=== PATIENT | female | born 1955 | race Caucasian/White ===

== ENCOUNTER 2017-05-03 19:11 | Emergency (ER) | payer BC ==
[2017-05-03] MEDS ORDERED: Ketorolac Tromethamine 30 MG/ML VIAL ONE (19:35)
[2017-05-03 20:03] LABS: Band 1 % (5-11); Eosinophils 6 % (0-10); Hemoglobin 14.5 g/dL (12.0-16.0); Lymphocytes 39 % (21-51); MDiff Complete? YES; Mean Corpuscular HGB CONC 33.2 g/dL (32.0-36.0); Mean Corpuscular Hemoglobin 28.8 pg (27.0-31.0); Mean Corpuscular Volume 86.7 fl (81.0-99.0); Mean Platelet Volume 8.2 fL (7.4-10.4); Monocytes 5 % (0-10); Neutrophil 37 % (42-75); PLT Morphology Comment Appears Adequate; Platelet Count 349 thou/uL (130-400); RBC Distribution Width 12.9 % (11.5-14.5); Reactive Lymphocytes 12 % (0-10); Red Blood Cell (RBC) Count 5.04 mill/uL (4.20-5.40); White Blood Cell (WBC) Count 11.6 thou/uL (4.8-10.8)
[2017-05-03 20:15] LABS: ALT (SGPT) 41 U/L (8-55); AST (SGOT) 33 U/L (5-34); Albumin 4.1 g/dL (3.5-5.0); Alkaline Phosphatase 101 U/L (40-150); Anion Gap 14 mmol/L (10-20); BUN (Urea Nitrogen) 17 mg/dL (9.8-20.1); Bilirubin, Total 0.2 mg/dL (0.2-1.2); CK (CPK) 86 U/L (29-168); Calc. Creatinine Clearance 0 mL/min (70-130); Calcium 9.7 mg/dL (7.8-10.44); Carbon Dioxide 24 mmol/L (22-29); Chloride 106 mmol/L (98-107); Estimated GFR-MDRD 48; Globulin 3.5 g/dL (2.4-3.5); Glucose 97 mg/dL (70-105); Lipase 60 U/L (8-78); Protein, Total 7.6 g/dL (6.0-8.3); Sodium 140 mmol/L (136-145)
[2017-05-03 20:16] LABS: CKMB 0.9 ng/mL (0-6.6)
--- NOTE | 2017-05-03 20:31 | RAD ---
PORTABLE CHEST: 05/03/17 HISTORY: Chest pain. COMPARISON: 12/29/13. Heart size is upper normal. Mild vascular engorgement, stable from prior exam. No focal infiltrate or effusion. No significant interval change noted. IMPRESSION: No evidence of acute process. POS: [facility]
== END 2017-05-03 20:27 | disposition home or self-care (01) ==
LOC: SCSER 19:11
DX: R07.89 Other chest pain (principal); I10 Essential (primary) hypertension; I48.91 Unspecified atrial fibrillation; F41.9 Anxiety disorder, unspecified; F32.9 Major depressive disorder, single episode, unspecified; Z79.82 Long term (current) use of aspirin; Z79.899 Other long term (current) drug therapy
CPT/HCPCS: 71045; 80053; 82553; 83690; 84484; 85025; 85379; 93005; 96374; J1885

== ENCOUNTER 2017-12-08 19:40 | Observation (INO) | payer BC ==
[2017-12-08 20:18] LABS: #Basophils 0.1 thou/uL (0.0-0.2); #Eosinphils 0.3 thou/uL (0.0-0.7); #Lymphocytes 5.1 thou/uL (1.20-3.40); %Eosinophils 2.8 % (0.0-10.0); %Lymphocytes 43.9 % (21.0-51.0); %Monocytes 8.8 % (0.0-10.0); %Neutrophils 43.4 % (42.0-75.0); Hemoglobin 14.7 g/dL (12.0-16.0); Mean Corpuscular HGB CONC 33.3 g/dL (32.0-36.0); Mean Corpuscular Hemoglobin 30.4 pg (27.0-31.0); Mean Corpuscular Volume 91.2 fL (78.0-98.0); Platelet Count 329 thou/uL (130-400); RBC Distribution Width 12.5 % (11.5-14.5); Red Blood Cell (RBC) Count 4.82 mill/uL (4.20-5.40); White Blood Cell (WBC) Count 11.5 thou/uL (4.8-10.8)
[2017-12-08] MEDS ORDERED: Diltiazem HCl 125 MG, Admixture Fee 1 EACH in Sodium Chloride 0.9% 100 ML IVPB SCH (20:30)
[2017-12-08 20:37] LABS: ALT (SGPT) 25 U/L (8-55); AST (SGOT) 29 U/L (5-34); Albumin 4.1 g/dL (3.5-5.0); Alkaline Phosphatase 100 U/L (40-150); Anion Gap 13 mmol/L (10-20); BUN (Urea Nitrogen) 13 mg/dL (9.8-20.1); Bilirubin, Total 0.4 mg/dL (0.2-1.2); CK (CPK) 96 U/L (29-168); Calc. Creatinine Clearance 0 mL/min (70-130); Calcium 9.3 mg/dL (7.8-10.44); Carbon Dioxide 24 mmol/L (22-29); Chloride 106 mmol/L (98-107); Estimated GFR-MDRD 59; Globulin 3.8 g/dL (2.4-3.5); Glucose 161 mg/dL (70-105); Potassium 3.9 mmol/L (3.5-5.1); Protein, Total 7.9 g/dL (6.0-8.3); Sodium 139 mmol/L (136-145)
[2017-12-08 20:49] LABS: Troponin I Less than 0.010 ng/mL (< 0.028)
[2017-12-08] MEDS ORDERED: Magnesium 2 GM/50 ML BAG (IN WATER) ONE (21:32)
--- NOTE | 2017-12-08 21:53 | RAD ---
CHEST ONE VIEW: 12/08/17 INDICATION: Atrial fibrillation. COMPARISON: Prior exam dated May 03, 2017. FINDINGS: There is mild cardiomegaly. Loop recorder overlying the left chest wall is stable. Lungs are clear. N o pleural effusion is evident. No acute osseous abnormality is noted. IMPRESSION: Stable mild cardiomegaly. No acute cardiopulmonary abnormality demonstrated. POS: [facility]
[2017-12-08 23:51] LABS: Troponin I Less than 0.010 ng/mL (< 0.028)
[2017-12-09] MEDS ORDERED: Ondansetron PF 4 MG/2 ML Vial IVP PRN (02:23)
[2017-12-09] MEDS ORDERED: Ondansetron ODT 4 MG TAB SL PRN (02:23)
[2017-12-09 02:58] LABS: Troponin I Less than 0.010 ng/mL (< 0.028)
[2017-12-09 03:33] VITALS: BMI 34.9
[2017-12-09] MEDS ORDERED: Diltiazem HCl SR 60 mg Capsule PO SCH (09:00)
[2017-12-09] MEDS ORDERED: Carvedilol 6.25 MG TAB PO SCH (09:00)
[2017-12-09] MEDS ORDERED: Aspirin 81 mg Enteric Coated Tablet PO SCH (09:00)
--- NOTE | 2017-12-09 12:52 | HP ---
DATE OF ADMISSION: 12/08/2017 CHIEF COMPLAINT: Tachycardia. HISTORY OF PRESENT ILLNESS: This is a 62-year-old female patient of Dr. Graham Marcos's wit h well known history of atrial fibrillation. She noticed yesterday that her heart was back in atrial fibrillation beating very rapidly and no chest pain, but she does knew she felt bad, so she called f or an ambulance from where she was. EMT has found her rate to be in 180s at medicines they started by the time she was in the ER rates in the 150s to 160s. They could not get it to come down, so they had to put her on a Cardizem drip. S he had been ablated by Dr. Rankin 4 different times and the last time they did a dual chamber ablatio n. She had recently discontinued her amiodarone to see how well she would tolerate that. Her regula r toggle press operator is Dr. Nixon. PAST MEDICAL HISTORY: Positive for atrial fibrillation with RVR. 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 She had a history of Mckeon anginal vaginal deliveries x4. CURRENT MEDICATIONS: Carvedilol 6.25 twice a day and an aspirin. ALLERGIES: She has no known drug allergies. FAMILY HISTORY: Heart disease in both mother and father and diabetes was also in the family in multi ple people. SOCIAL HISTORY: She is , has 4 children, all girls. Denies any toxic habits. REVIEW OF SYSTEMS: Denies any visual changes, headaches, fevers or chills. No troubles chewing or s wallowing. No cough, no shortness of breath, no chest pain. Denies any nausea or vomiting. No boyle ges in bowel or bladder habits. No diarrhea, constipation, melena or hematochezia. Denies any dysur ia or hematuria. Denies any paresis or paresthesias. Denies any psychiatric symptoms. No homicidal or suicidal ideations. No auditory or visual hallucinations. PHYSICAL EXAMINATION: VITAL SIGNS: Temperature 98.2, pulse 63, respiratory 16, satting 95% on room air, blood pressure 133 /72 and that is after being on a Cardizem drip for several hours. HEENT: Normocephalic and atraumatic cranium. Pupils are equal, round, and reactive to light and acc ommodation. Extraocular movements are intact. Moist mucosal membranes are moist. She has a vascula r birthmark on the face over her left periorbital skin and infraorbital area. NECK: Supple, no JVD, no bruits, no thyromegaly. LUNGS: Lungs are clear to auscultation bilaterally, no rales, rhonchi or wheezes. HEART: S1, S2, no rubs, murmurs or gallops. I am not detecting an irregular rhythm at this time. ABDOMEN: Soft, nontender, nondistended, no palpable masses, no hepatosplenomegaly. GENITOURINARY: Deferred. EXTREMITIES: Palpable pulses x4. No clubbing, cyanosis, or edema. NEUROLOGIC: Grossly intact, alert and oriented x4. Cranial nerves II-XII are grossly intact bilater ally. LABORATORY AND X-RAY FINDINGS: CBC; white count 11.5, H and H is 14.7 and 44, platelet count is 329. Sodium 139, potassium 3.9, chloride 106, bicarbonate 24, BUN is 13, creatinine 0.96 filtration rate is slightly low at 59, glucose at that time was 161, AST is 29, ALT is 25, CK-MB 1.0, troponin has b een undetectable x3. ASSESSMENT: Atrial fibrillation with rapid ventricular response, controlled with Cardizem drip. PLAN: We will transition her from Cardizem drip to p.o. Cardizem. Cardiology has been consulted. I hope and if she tolerates that, she will be able to go home in short order.
--- NOTE | 2017-12-09 14:57 | CON ---
DATE OF CONSULTATION: 12/09/2017 ROOM #: [id number]. PRIMARY CARE DOCTOR: Graham Marcos M.D. PRIMARY PERFORMANCE REPORTER: Tyler Nixon M.D. REFERRING PHYSICIAN: Riley Portillo D.O. REASON FOR CARDIOLOGY CONSULTATION: Atrial fibrillation with a rapid ventricular response. HISTORY OF PRESENT ILLNESS: Ms. Alonzo is very pleasant 62 years old female with a significan t history of chronic atrial fibrillation with 4-5 times ablation in the past and a Watchman device pl acement in 2014. The last time the patient has seen Dr. Nixon and Dr. Rankin, the electrophysiol ogist; she was seen by Dr. Rankin in [place] about 4 weeks ago. At that time, she was complaining abo ut skipping beats and fast heart rate, possibly due to the Multaq. Dr. Rankin recommend her to hold the Multaq for 2 weeks, to follow up with Dr. Rankin and possible ablation. She was doing well until yesterday 07:00 in the evening. When she was walking to the shopping Center, she started having pal pitation and she felt that her heart started fluttering with dizziness and mild coughing. She denied any other cardiac complaints during the episode and she called an ambulance, and when she was seeing the EMS first time with EKG, the EKG revealed atrial fibrillation with heart rate 150 per patient re port. In the ER, the patient received Cardizem bolus, and Cardizem drip was started. When patient w as transferred to telemetry floor at 03:00 this morning, she was already converted back to sinus rhyt hm, heart rate in 60-70s. At this moment, since then, the telemetry record shows patient's heart rat e continues with heart rate of 60-70s with sinus rhythm. She reports when she feels even mild stress ful situations, she started having fluttering in her chest; however, when she was on the Multaq, she had 1-3 minutes atrial fibrillation or fluttering episodes 3 times a day, but more frequent skipping beats pain. Patient's echocardiogram was done in 04/2017 with EF of 50%-55%, mild mitral valve regurgitation, and mild tricuspid regurgitation. The patient underwent a cardiac catheterization in 09/2016, which jason ws normal coronary arteries. Patient's last EKG in Dr. Nixon's office was done in 04/2017, which shows sinus rhythm with a heart rate of 54. Again, the patient had a history of atrial fibrillation ablation x4, the latest one was in the 2014 with Watchman device placement in 11/2014. During the C ardiology consult assessment, the patient denied any chest pain, dizziness, lightheadedness, shortnes s of breath, fatigue, or any cardiac complaints. PAST MEDICAL HISTORY: Atrial fibrillation with multiple ablation and Watchman device placement, slee p apnea using the CPAP at night, hypertension, anxiety, and depression. PAST SURGICAL HISTORY: Splenectomy, atrial fibrillation ablation x4 to x5, latest one in the 2014 wi th Watchman device placement and cardiac catheterization in 09/2016 with normal coronary arteries. FAMILY HISTORY: There is significant family history of diabetes and cancer in both maternal and nguyen rnal side. The patient's mother has a pacemaker placement. The patient's father due to a m yocardial infarction at the age of 61. SOCIAL HISTORY: The patient is . She had 4 children. She is living with one of her childre n, who needs a special need, daughter special needs. She denies tobacco, ETOH, or illicit drug abuse . She drinks 2 cups of coffee in the morning and 1 tea in the evening. She exercises twice a week w ith a treadmill 30 minutes without any cardiac complaints. ALLERGIES: She has no known drug allergies. HOME MEDICATIONS: Zoloft 50 mg once a day, Coreg 6.25 mg twice a day, aspirin 81 mg once a day. REVIEW OF SYSTEMS: A 12-point review of systems is negative, unless otherwise mentioned in the HPI. PHYSICAL EXAMINATION: VITAL SIGNS: Blood pressure 124/56, temperature 97.9, pulse is 70 with sinus rhythm, respiratory rat e 16, O2 sat 95% with room air. GENERAL: The patient alert and oriented x4, in no acute distress. HEAD: Normocephalic, atraumatic. EYES: Extraocular muscle movement intact. ENT AND MOUTH: Oral and nasal mucosa moist without lesion. NECK: No JVP. Normal range of motion. RESPIRATORY: Clear to auscultate bilaterally. CARDIOVASCULAR: Regular rate and rhythm. Normal S1 and S2. There are no S3 or S4. No significant murmur, hives, or thrill is noted. A 2+ pulses in bilateral lower extremities and bilateral radial p ulses. Carotid pulse present without bruit or thrill. ABDOMEN: Soft, nontender. No mass to palpate. Bowel sounds are present, hyperactive. MUSCULOSKELETAL: The patient able to move all extremities. The patient denies claudication. SKIN: Warm and dry. No erythema, bruise, lesion noted. PSYCHIATRIC: Patient alert and oriented x4. Mood appropriate. LABORATORY DATA: WBC 11.5, hemoglobin 14.7, hematocrit 44.0, platelets 329. Sodium 139, potassium 3 .9, BUN 13, creatinine 0.96, AST 29, ALT 25, and TSH was done 09/2016 of 2.8079, total cholesterol 21 0, triglyceride 150, LDL 125, HDL 55, troponin that is negative x3. The patient's chest x-ray shows no acute cardiopulmonary abnormalities. ASSESSMENT AND PLAN: 1. Atrial fibrillation with rapid ventricular response. Patient is converted back to sinus rhythm w ith diltiazem drip. The patient maintained sinus rhythm with heart rate in the 60s-70s. We suggeste d the patient to resume the Multaq, which patient hesitated to do due to the history of skipping beat s and fluttering in chest. I would like to discuss with Dr. Judd and the patient would like to eric nue taking the diltiazem instead. I would like to discuss with Dr. Judd and we would like to make re commendations. 2. Hypertension. Patient's blood pressure is stable at this moment. We would like to continue to m onitor. 3. Anxiety/depression. Patient's status is stable at this moment. The patient denies any suicidal attempt thought. 4. Sleep apnea. She has a CPAP at the bedside. She says she did not use it last night. She was br eathing well throughout the night last night. Thank you very much for allowing the Cardiology Service to participate in the care of this patient. We will follow along with the patient care team and make further recommendations as appropriate.
[2017-12-09 16:01] VITALS: BP 125/58; TEMP 98.1
[2017-12-09] MEDS ORDERED: Dronedarone HCl 400 MG TAB PO SCH (17:00)
--- NOTE | 2017-12-10 00:40 | DIS ---
DATE OF ADMISSION: 12/09/2017 DATE OF DISCHARGE: 12/09/2017 ADMITTING DIAGNOSIS: Atrial fibrillation with rapid ventricular response. DISCHARGE DIAGNOSIS: Atrial fibrillation with rapid ventricular response. HOSPITAL COURSE: Patient is a 62-year-old female patient of Dr. Graham Levi. She is we ll known to her product inspection supervisor, Dr. Nixon as well as Dr. Rankin. She has had multiple ablations, b ut still has recurrence of her atrial fibrillation. She came into the hospital today due to atrial f ibrillation with rapid ventricular response episode. She was put on a Cardizem drip in the ER. She converted while she was put on the floor Initially transition to her from drip to p.o. Cardizem and Cardiology was consulted. Their recommendations were to go back to the Multaq and not be on the Card izem, But they did say since she has converted back to sinus she is able to be discharged to home. S o the discharge plan is to go home and continue her previous medicines of carvedilol 6.25 twice a day , aspirin 81 mg daily. She was also on sertraline 50 mg a day and then she will restart the Multaq t hat she was on, we are going to do 200 mg twice a day. She will need to follow up with Dr. Graham lavarez next week and she will also need to contact Dr. Rankin, electrophysiology product inspection supervisor for an mxaimo ointment with him.
[2017-12-10] MEDS ORDERED: Dronedarone HCl 400 MG TAB PO SCH (08:00)
--- NOTE | 2017-12-10 08:39 | EKG ---
Test Reason : Blood Pressure : / mmHG Vent. Rate : 154 BPM Atrial Rate : 150 BPM P-R Int : 000 ms QRS Dur : 082 ms QT Int : 282 ms P-R-T Axes : 000 041 213 degrees QTc Int : 451 ms Atrial fibrillation with rapid ventricular response Marked ST abnormality, possible inferior subendocardial injury Abnormal ECG Confirmed by SILVIANO MICHELE ([id number]) on 12/10/2017 8:39:11 AM Referred By: Confirmed By:SILVIANO MICHELE
--- NOTE | 2017-12-11 09:43 | CON ---
ADDENDUM Please refer to the note dictated by the nurse practioner, Marj Ugalde NP DATE OF CONSULTATION: 12/09/2017 INDICATION FOR CONSULTATION: A 62-year-old female with a history of intermittent atrial fibrillation with rapid ventricular response. HISTORY OF PRESENT ILLNESS: This is a 62-year-old female who has had multiple ablations for atrial fibrillation in the past, was seen by press reader approximately 1 month ago. She had been on Multaq, it was advised that she stop the Multaq and see how she does without the medication. She had been having some palpitations while on the Multaq. She did stop the medication and then yesterday when she was going shopping, she went to the store , she knows she had a rapid heart rate and she became somewhat lightheaded. She sat on the floor. 911 was called. She was taken to the emergency room. Her heart rate was in the 150s and 160s with atrial fibrillation. She was treated with IV diltiazem and converted back to normal sinus rhythm. At this time, she is feeling much better. She does have some fatigue. Otherwise denied any chest pain. She has had a cardiac catheterization in the past and had no evidence of coronary disease according to the patient. Her ejection fraction has been relatively stable. At this time, we suggested her that she resume the Multaq and will follow up with Dr. Rankin and make a decision whether or not she will undergo yet another ablation or continue the medication. On the Multaq, she was having palpitations and short burst of actual atrial fibrillation, but not prolonged like she had yesterday. Obviously, she is getting some benefit from the Multaq, but is not completely controlling the atrial fibrillation. At this time, she is stable and is ready for discharge. We will continue her on a very low dose of diltiazem with the Multaq and also with the low dose of a beta yudy. She will be discharged to home on the Multaq 400 b.i.d. as well as diltiazem 120 mg a day, and her previous dose of Coreg. The patient did undergo Watchman implantation also several years ago to decrease the risk of embolic phenomenon associated with atrial fibrillation she did develop in her. I believe also that medication dyer, she was taking only aspirin for the atrial fibrillation and we may need to consider further oral anticoagulation; however, she does have a Watchman device which significantly lowers the risk of embolic phenomenon associated with atrial fibrillation. For her past medical history, social history, family history, review of systems , medications, and allergies, please refer to the notes dictated by the nurse practitioner. PHYSICAL EXAMINATION: GENERAL: Reveals a well-developed, well-nourished female, in no acute distress at this time. VITAL SIGNS: Stable. HEENT: Shows head to be normocephalic and atraumatic. Carotid pulses are present. There were no bruits. CHEST: Clear to auscultation without rales, rhonchi or wheezing. CARDIOVASCULAR: Exam reveals a regular rate and rhythm, normal S1, S2. There is no S3, S4. There were no significant murmurs, heaves, thrills, bruits, or rubs noted. ABDOMEN: Soft and nontender, some obesity. Positive bowel sounds are present. EXTREMITIES: Showed no clubbing, cyanosis, or edema. NEUROLOGIC: She is fully intact. IMPRESSION: Intermittent atrial fibrillation which has been difficult to control despite multiple ablations and she also has a Watchman device placed which will decrease the risk of embolic phenomenon, but she does feel the symptoms associated with atrial fibrillation to the rapid heart rate. At this time, we will resume her on her Multaq. We will continue low dose of diltiazem as well as low dose beta blockers. She will follow up with Dr. Rankin. We will contact his office on Monday to see when he can see the patient and rediscuss further medical management or repeat ablation of the atrial fibrillation. Eventually should she not be a candidate for it and we cannot control the heart rate, she eventually may need to undergo an AVJ ablation which would require a pacemaker insertion, fortunately she has normal ejection fraction, which is still about 50 -55%. SYLVIA
== END 2017-12-09 17:15 | disposition home or self-care (01) ==
LOC: ERS 19:40 → 2SW 12-09 02:07
PROVIDERS: ADMIT Family Medicine; ATTEND Family Medicine
DX: I48.91 Unspecified atrial fibrillation (principal); G47.30 Sleep apnea, unspecified; I10 Essential (primary) hypertension; F32.9 Major depressive disorder, single episode, unspecified; F41.9 Anxiety disorder, unspecified; Z79.82 Long term (current) use of aspirin; Z79.899 Other long term (current) drug therapy; Z95.818 Presence of other cardiac implants and grafts
CPT/HCPCS: 36415; 71045; 80053; 82553; 84484; 85025; 93005; 96365; 96366; 96368; 96376; G0378; J7050

== ENCOUNTER 2018-01-19 08:06 | Outpatient (CLI) | payer BC ==
--- NOTE | 2018-01-19 13:29 | CT ---
CTA OF THE THORAX UTILIZING IV CONTRAST AND 3D REFORMATTED IMAGING: INDICATION: History of Watchman closure device placement, concern for leak. CONTRAST: 100 cc of Isovue 370. COMPARISON: Prior exam dated 08/29/2012. FINDINGS: There has been interval placement of an endovascular closure device within the left atrial appendage completely obliterating the left atrial appendage without opacification of contrast within the left a trium. There is no evidence to suggest leak. No definite central pulmonary embolus is evident. The heart and great vessels are of normal caliber. Small pulmonary nodules within the right middle lobe and right upper lobe are stable to the comparison. There is a small sub-4 mm pulmonary nodule withi n the anterior right upper lobe which was not definitely present on a comparison study and is best se en on image 73 of series 8. There is subsegmental atelectasis involving both lung bases. There is s ubsegmental atelectasis involving both lung bases. Visualized adrenal glands are unremarkable. The spleen is surgically absent. Small cyst seen involving the superior pole of the right kidney. IMPRESSION: 1. Interval placement of a left atrial appendage closure device without evidence of contrast opacifi cation of the residual left atrial appendage or any evidence to suggest leak. The appendage appears to be completely closed with application of this device. 2. Sub-4 mm right upper lobe pulmonary nodule has developed in the interim since 2012. If the patie nt is at high risk for malignancy, followup Ct examination of the chest in 3 months may e helpful for further evaluation. POS: [facility]
== END 2018-01-19 08:07 | disposition home or self-care (01) ==
LOC: SCSCT 08:06
PROVIDERS: ATTEND Internal Medicine Cardiovascular Disease
DX: I48.1 Persistent atrial fibrillation (principal); R91.1 Solitary pulmonary nodule
CPT/HCPCS: 71275; 82565

== ENCOUNTER 2018-02-10 14:24 | Emergency (ER) | payer BC ==
[2018-02-10 16:20] LABS: #Basophils 0.1 thou/uL (0.0-0.2); #Eosinphils 0.4 thou/uL (0.0-0.7); #Lymphocytes 4.5 thou/uL (1.20-3.40); #Monocytes 1.2 thou/uL (0.11-0.59); %Basophils 0.8 % (0.0-1.0); %Eosinophils 3.8 % (0.0-10.0); %Lymphocytes 40.4 % (21.0-51.0); %Monocytes 10.6 % (0.0-10.0); %Neutrophils 44.4 % (42.0-75.0); Hemoglobin 13.2 g/dL (12.0-16.0); Mean Corpuscular HGB CONC 32.6 g/dL (32.0-36.0); Mean Corpuscular Hemoglobin 29.5 pg (27.0-31.0); Mean Corpuscular Volume 90.5 fL (78.0-98.0); Mean Platelet Volume 8.2 fL (7.4-10.4); Platelet Count 302 thou/uL (130-400); RBC Distribution Width 12.3 % (11.5-14.5); Red Blood Cell (RBC) Count 4.48 mill/uL (4.20-5.40); White Blood Cell (WBC) Count 11.2 thou/uL (4.8-10.8)
[2018-02-10 16:39] LABS: ALT (SGPT) 19 U/L (8-55); AST (SGOT) 22 U/L (5-34); Alkaline Phosphatase 94 U/L (40-150); Anion Gap 14 mmol/L (10-20); BUN (Urea Nitrogen) 14 mg/dL (9.8-20.1); Bilirubin, Total 0.2 mg/dL (0.2-1.2); Calc. Creatinine Clearance 0 mL/min (70-130); Carbon Dioxide 24 mmol/L (22-29); Chloride 107 mmol/L (98-107); Estimated GFR-MDRD 71; Globulin 3.4 g/dL (2.4-3.5); Glucose 114 mg/dL (70-105); Potassium 3.7 mmol/L (3.5-5.1); Protein, Total 7.4 g/dL (6.0-8.3); Sodium 141 mmol/L (136-145)
--- NOTE | 2018-02-16 15:19 | EKG ---
Test Reason : Blood Pressure : / mmHG Vent. Rate : 139 BPM Atrial Rate : 153 BPM P-R Int : 000 ms QRS Dur : 080 ms QT Int : 298 ms P-R-T Axes : 000 038 -61 degrees QTc Int : 453 ms Atrial fibrillation with rapid ventricular response Nonspecific ST and T wave abnormality Abnormal ECG Confirmed by FLETCHER Hartman, TOO ([id number]), online editor YAMILE MORRIS ([id number]) on 02/16/2018 3:18:52 PM Referred By: Confirmed By:TOO BYNUM M.D.
--- NOTE | 2018-02-16 15:19 | EKG ---
Test Reason : Blood Pressure : / mmHG Vent. Rate : 077 BPM Atrial Rate : 077 BPM P-R Int : 000 ms QRS Dur : 088 ms QT Int : 366 ms P-R-T Axes : 000 031 030 degrees QTc Int : 414 ms Accelerated Junctional rhythm Nonspecific ST abnormality Abnormal ECG Confirmed by TOO BYNUM M.D. ([id number]), commissioning editor YAMILE MORRIS ([id number]) on 02/16/2018 3:18:52 PM Referred By: Confirmed By:TOO BYNUM M.D.
== END 2018-02-10 18:00 | disposition home or self-care (01) ==
LOC: ERS 14:24
DX: R00.2 Palpitations (principal); I10 Essential (primary) hypertension; F32.9 Major depressive disorder, single episode, unspecified; F41.9 Anxiety disorder, unspecified; Z79.899 Other long term (current) drug therapy; Z79.82 Long term (current) use of aspirin
CPT/HCPCS: 36415; 80053; 84484; 85025; 93005